=== PATIENT | female | born 1990 | race Caucasian/White ===

== ENCOUNTER 2020-10-22 11:22 | Emergency (ER) | payer OTHER, SELFPAY ==
[2020-10-22 11:23] VITALS: BP 143/71; PULSE 96; RESP 20; TEMP 36.6; O2SAT 99; BMI 31.3
--- NOTE | 2020-10-22 12:42 | HMH.EDUTC ---
[facility] Disposition Clinical Impression: Viral pharyngitis Disposition: Home, Self-Care Condition on Discharge: Good Instructions: Viral Pharyngitis, DI for Viral Pharyngitis Additional Instructions: Drink plenty of fluids. Take tylenol or ibuprofen for pain or fever. Take the medications as directed. Follow up with your regular doctor. GO TO THE ER FOR ANY WORSENING SYMPTOMS Prescriptions: Brompheniramine/Pseudoephed/Dm [Bromfed Dm Cough Syrup] 5 ml PO Q6HP PRN #240 ml PRN Reason: Cough Transmission Status: Received by [id number] predniSONE [Deltasone 10mg tablet] 10 mg PO BID 3 Days #6 tab Transmission Status: Received by [id number] Referrals: Nidia Walker [Primary Care Provider] - Time of Disposition: 12:50 Medical Decision Making - Medical Records Medical records reviewed: Yes: I reviewed the patient's medical records. - Ricardo Inquiry Pt receiving controlled substance: No Vital Signs: 10/22/20 11:23 10/22/20 12:54 Temperature 97.9 F 97.9 F Temperature Source Oral Pulse Rate 96 H Pulse Rate [Left Radial] 96 H Respiratory Rate 20 20 Blood Pressure 143/71 H Blood Pressure [Right Arm] 143/71 H Blood Pressure Mean [Right Arm] 95 Blood Pressure Source [Right Arm] Automatic Cuff Blood Pressure Position [Right Arm] Sitting 02 Sat by Pulse Oximetry 99 Oxygen Delivery Method Room Air Room Air - Lab Data Lab results reviewed: Yes: I reviewed the patient's lab results. [facility] HPI - General Stated complaint: sore throat, spots in mouth Time Seen by Provider: 10/22/20 12:42 Mode of Arrival: Ambulatory Source of Information: Patient Limitations: No Limitations Description of Symptoms (Recalled from Triage Doc. by RN): sore throat with blisters on tongue HEENT Symptoms (Recalled from RN notes): Yes Resp Symptoms (Recalled from RN notes): No Skin Symptoms (Recalled from RN notes): No MS Symptoms (Recalled from RN notes): No Functional Status (Recalled from RN notes): na - History of Present Illness Provider Complaint: She states that for the past 1 day she has had sore areas inside her mouth and a sore throat. She has not had any fever, chills or other symptoms. She does feel kind of bad though. - Related Data Previous Rx's Medication Instructions Recorded Brompheniramine/Pseudoephed/Dm 5 ml PO Q6HP PRN #240 ml 10/22/20 [Bromfed Dm Cough Syrup] predniSONE [Deltasone 10mg tablet] 10 mg PO BID 3 Days #6 tab 10/22/20 Allergies Allergy/AdvReac Type Severity Reaction Status Date / Time oseltamivir [From TAMIFLU] Allergy Unknown I-RASH Unverified 02/06/17 14:12 - Worker's Comp Is this a Worker's Comp case?: No [facility] History - Hepatitis A Screen Drug use history?: No High risk sexual behaviors?: No History of sexually transmitted infection?: No Currently employed?: No Childcare worker?: No Do you have indoor plumbing?: Yes Do you have electricity?: Yes Attestation statement:: This patient has been screened for Hepatitis A risk factors. I have reviewed the patient's past medical history: Yes ROS Obtained: Yes All systems reviewed & no additional complaints - Constitutional Constitutional: Denies chills, Denies fever(s), Denies poor appetite, Denies malaise - Eyes Eyes: Denies eye discharge - ENT Ears, Nose, Mouth, and Throat: Denies dizziness, Denies otalgia, Reports sore throat - Cardiovascular Cardiovascular: Denies chest pain - Respiratory Respiratory: Denies chest congestion, Denies cough, Denies dyspnea, Denies stridor, Denies wheezing - Gastrointestinal Gastrointestingal: Denies: abdominal pain, diarrhea, nausea, vomiting Physical Exam - General General appearance: alert, in no apparent distress - Head Head exam: atraumatic, normocephalic, normal inspection - Eye Eye exam: Present: normal appearance, PERRL, EOMI - ENT ENT exam: Present: mucous membranes moist, normal external ear exam - Expanded ENT
[2020-10-22 12:54] VITALS: BP 143/71; PULSE 96; RESP 20; TEMP 36.6; O2SAT 99
[2020-10-24 09:14] LABS: UTC Strep Screen (Rapid) Negative (Negative)
== END 2020-10-22 12:57 | disposition home or self-care (01) ==
PROVIDERS: Emergency Provider Nurse Practitioner Family; PCP Nurse Practitioner Family
DX: J02.0 Streptococcal pharyngitis (principal)
CPT/HCPCS: 87880; 99202; G0463

== ENCOUNTER 2020-12-06 01:52 | Emergency (ER) | payer OTHER, SELFPAY ==
[2020-12-06 02:29] LABS: Microscopic, Urine URINE MICROSCOPIC (MICROSCOPIC)
[2020-12-06 02:32] LABS: Basophils # 0.1 K/mm3 (0-0.2); Basophils % 0.5 % (0.1-2.0); Eosinophils # 0.4 K/mm3 (0.0-0.4); Eosinophils % 2.6 % (0.1-12.0); Hematocrit 42.4 % (37.0-47.0); Hemoglobin 13.2 g/dL (12.2-16.2); Lymphocytes # 5.1 K/mm3 (0.7-4.5); Lymphocytes % 32.1 % (10-50); Mean Corpuscular HGB Conc 31.3 g/dL (31.8-35.4); Mean Corpuscular Hemoglobin 29.4 pg (27.0-31.2); Mean Platelet Volume 7.1 fl (7.4-10.4); Monocytes # 0.7 K/mm3 (0.1-1.0); Monocytes % 4.4 % (1.7-9.3); Neutrophils # 9.6 K/mm3 (1.8-7.8); Neutrophils % 60.4 % (37.0-80.0); Platelet Count 430 K/mm3 (142-424); Red Cell Distribution Width 13.7 % (11.5-17.5); White Blood Count 15.9 K/mm3 (4.8-10.8)
[2020-12-06 02:34] LABS: Appearance,Urine CLEAR (Clear); Bilirubin,Urine Negative (Negative); Blood, Urine 3+ (Negative); Color,Urine YELLOW (Yellow); Glucose,Urine (UA) Negative (Negative); Ketones,Urine Negative (Negative); Leukocyte Esterase,Urine Negative (Negative); Nitrate,Urine Negative (Negative); Protein,Urine Negative (Negative); Specific Gravity, Urine >= 1.030 (1.005-1.030); Urobilinogen,Urine 0.2 EU/dl (0.2)
[2020-12-06 02:36] LABS: MANUAL DIFFERENTIAL MANUAL DIFFERENTIAL (MANUAL DIFF)
[2020-12-06 02:37] LABS: Urine Pregnancy, HCG Qual. Negative (Negative)
[2020-12-06 02:38] LABS: Amorphous Sediment,Urine Trace /lpf
[2020-12-06 02:39] LABS: Alanine Aminotransferase 29 U/L (12-78); Albumin Level 4.5 g/dl (3.5-5.0); Albumin/Globulin Ratio 1.3 (1.1-1.8); Alkaline Phosphatase 106 U/L (38-126); Amylase 71 U/L (30-110); Anion Gap 15.9 mEq/L (5-15); Aspartate Amino Transferase 34 U/L (14-36); Bilirubin,Total 0.2 mg/dl (0.2-1.3); Blood Urea Nitrogen 9 mg/dl (7-17); Calcium 9.3 mg/dl (8.4-10.2); Carbon Dioxide 26 mmol/L (22.0-30.0); Chloride 106 mmol/L (98-107); Creatinine Clearance Estimated 164 mL/min (50-200); Estimated Glomerular Filt Rate 100 ml/min (>60); GFR (African American) 121 ML/MIN (>60); Globulin 3.6 g/dL (1.3-3.2); Glucose 126 mg/dl (74-100); Lipase 121 U/L (23-300); Potassium 3.9 mmoL/L (3.5-5.1); Sodium 144 mmol/L (136-145); Total Protein,Serum 8.1 g/dl (6.3-8.2)
[2020-12-06 02:43] LABS: Hypochromasia 1+; Lymphocytes % 36 % (10-50); Monocytes % 1 % (2-9); Neutrophils % 58 % (42-76); Platelet Estimate Slight Increase; Total Cells Counted 100
[2020-12-06 02:44] LABS: C-Reactive Protein 11.1 mg/L (0-4)
--- NOTE | 2020-12-06 02:50 | CT_ITS ---
PROCEDURE INFORMATION: Exam: CT Abdomen And Pelvis Without Contrast Exam date and time: 12/06/2020 2:50 AM Age: 30 years old Clinical indication: Abdominal pain; Flank; Right; Additional info: R flank pain, poss stone TECHNIQUE: Imaging protocol: Computed tomography of the abdomen and pelvis without contrast. Radiation optimization: All CT scans at this facility use at least one of these dose optimization techniques: automated exposure control; mA and/or kV adjustment per patient size (includes targeted exams where dose is matched to clinical indication); or iterative reconstruction. COMPARISON: ABDPELW/WO CT ABD PELVIS W/WO CONTRAST 04/11/2016 12:00 PM FINDINGS: Lungs: The visualized lung bases are unremarkable. Liver: Unremarkable noncontrast appearance. Gallbladder and bile ducts: No wall thickening. No calcified stones. No biliary dilation. Pancreas: Unremarkable noncontrast appearance. Spleen: Normal. No splenomegaly. Adrenal glands: Normal. No mass. Kidneys and ureters: There is a 2 mm calculus at the right ureterovesical junction. There is mild upstream right ureterectasis and pelvocaliectasis. No right caliceal calculi are seen. No left renal/ureteral calculi. No left hydronephrosis. Stomach and bowel: No bowel dilation or obstruction. Small to moderate size hiatal hernia. Appendix: Normal appendix. Intraperitoneal space: No pneumoperitoneum. No ascites. Vasculature: Unremarkable. No abdominal aortic aneurysm. Lymph nodes: No enlarged lymph nodes. Urinary bladder: No wall thickening. Reproductive: Unremarkable as visualized. Bones/joints: Unremarkable. No acute fracture. Soft tissues: Small to moderate size umbilical hernia containing fat. Small fat containing bilateral inguinal hernias. IMPRESSION: Obstructing 2 mm calculus at the right ureterovesical junction with mild upstream hydroureteronephrosis
[2020-12-06 02:59] LABS: Erythrocyte Sedimentation Rate 30 mm/hr (0-20)
--- NOTE | 2020-12-06 03:19 | HMH.EDNVD ---
ED Disposition Clinical Impression: Renal colic on right side Disposition: Home, Self-Care Condition on Discharge: Good Instructions: DI for Flank Pain Additional Instructions: use meds and call pcp and urologist this am Referrals: Nidia Walker [Primary Care Provider] - Bryce Sung MD [Staff Physician] - - Critical Care Critical Care Time: No Attestation: On 12/06/20, the high probability of a clinically significant, sudden or life threatening deterioration of the following system(s) required my full and direct attention, intervention and personal management. The time I documented below is in addition to time spent performing reported procedures but includes the following listed in this critical care notation. Medical Decision Making - Medical Records Medical records reviewed: Yes: I reviewed the patient's medical records. - Ricardo Inquiry Pt receiving controlled substance: No Vital Signs: 12/06/20 02:07 Temperature 97.8 F Temperature Source Oral Pulse Rate [Apical] 73 Respiratory Rate 20 Blood Pressure [Right Arm] 144/79 H Blood Pressure Mean [Right Arm] 100 Blood Pressure Source [Right Arm] Automatic Cuff Blood Pressure Position [Right Arm] Sitting 02 Sat by Pulse Oximetry 97 Oxygen Delivery Method Room Air - Lab Data Lab results reviewed: Yes: I reviewed the patient's lab results. Lab Results 12/06/20 02:00: WBC 15.9 H, RBC 4.50, Hgb 13.2, Hct 42.4, MCV 94.0, MCH 29.4, MCHC 31.3 L, RDW 13.7, Plt Count 430 H, MPV 7.1 L, Neut % (Auto) 60.4, Lymph % (Auto) 32.1, [place] % (Auto) 4.4, Eos % (Auto) 2.6, Baso % (Auto) 0.5, Neut # (Auto) 9.6 H, Lymph # (Auto) 5.1 H, [place] # (Auto) 0.7, Eos # (Auto) 0.4, Baso # (Auto) 0.1, Total Counted 100, Neutrophils % (Manual) 58, Band Neutrophils % 5.0, Lymphocytes % (Manual) 36, Monocytes % (Manual) 1 L, Platelet Estimate Slight increase, Hypochromasia 1+ 12/06/20 02:00: Sodium 144, Potassium 3.9, Chloride 106, Carbon Dioxide 26, Anion Gap 15.9 H, BUN 9, Creatinine 0.70, Estimated Creat Clear 164, Estimated GFR 100, Est GFR ( Amer) 121, Glucose 126 H, Calcium 9.3, Total Bilirubin 0.2, AST 34, ALT 29, Alkaline Phosphatase 106, C-Reactive Protein 11.1 H, Total Protein 8.1, Albumin 4.5, Globulin 3.6 H, Albumin/Globulin Ratio 1.3, Amylase 71 12/06/20 02:00: Urine Color Yellow, Urine Appearance Clear, Urine pH 6.0, Ur Specific [place] >= 1.030, Urine Protein Negative, Urine Glucose (UA) Negative, Urine Ketones Negative, Urine Blood 3+, Urine Nitrate Negative, Urine Bilirubin Negative, Urine Urobilinogen 0.2, Ur Leukocyte Esterase Negative, Urine RBC 10-20, Ur Squamous Epith Cells 10-20, Amorphous Sediment Trace 12/06/20 02:00: ESR 30 H 12/06/20 02:00: Urine HCG, Qual Negative 12/06/20 02:00: Lipase 121 Result diagrams: 12/06/20 02:00 12/06/20 02:00 Orders (Tests/Meds): ED MEDICATIONS Generic Name Dose Route Start Last Admin Trade Name Freq PRN Reason Stop Dose Admin Sodium Chloride 1,000 mls @ 999 mls/hr 12/06/20 02:45 12/06/20 02:41 Sod Chlor 0.9% 1000ml Bag IV 12/06/20 03:45 999 mls/hr .Q1H1M GERARDO Administration Discontinued Medications Generic Name Dose Route Start Last Admin Trade Name Freq PRN Reason Stop Dose Admin Acetaminophen/Codeine Phosphate 1 [place] 12/06/20 03:32 Acetaminophen 300mg W/Codeine 30mg Take Home Pack (6) PO 12/06/20 03:33 ONCE ONE Ketorolac Tromethamine 30 mg 12/06/20 02:40 12/06/20 02:41 Ketorolac 30mg/Ml Vial IV 12/06/20 02:41 30 mg ONCE ONE Administration Morphine Sulfate 4 mg 12/06/20 03:36 Morphine 4mg/Ml Syringe IV 12/06/20 03:37 ONCE ONE Ondansetron HCl 4 mg 12/06/20 02:40 12/06/20 02:41 Ondansetron 4mg/2ml Vial IV 12/06/20 02:41 4 mg ONCE ONE Administration Promethazine HCl 25 mg 12/06/20 03:36 Promethazine Hcl 25mg/Ml 1ml Vial IV 12/06/20 03:37 ONCE ONE Sodium Chloride 25 ml 12/06/20 03:36 Sodium Chloride 0.9% 25ml Bag IV 12/06/20 03:37 O
[2020-12-06 04:03] VITALS: BP 135/83; PULSE 77; RESP 22; TEMP 36.7; O2SAT 98
== END 2020-12-06 04:05 | disposition home or self-care (01) ==
PROVIDERS: Emergency Provider Emergency Medicine; PCP Nurse Practitioner Family
DX: N23 Unspecified renal colic (principal)
CPT/HCPCS: 74176; 80053; 81001; 81025; 82150; 83690; 85007; 85025; 85651; 86140; 96365; 96366; 99282; J2405

== ENCOUNTER 2020-12-28 08:55 | Inpatient (IN) | payer OTHER, SELFPAY ==
[2020-12-28] VITALS (11 sets, daily range): BP systolic 114–138; BP diastolic 57–77; PULSE 67–112; RESP 16–19; TEMP 36.7–36.8; O2SAT 93–99; BMI 31.6; BMI 31.8; BMI 30.9
[2020-12-28 09:52] LABS: Basophils # 0.1 K/mm3 (0-0.2); Basophils % 0.3 % (0.1-2.0); Eosinophils % 0.1 % (0.1-12.0); Hematocrit 42.2 % (37.0-47.0); Hemoglobin 13.3 g/dL (12.2-16.2); Lymphocytes # 2.9 K/mm3 (0.7-4.5); Lymphocytes % 11.7 % (10-50); Mean Corpuscular HGB Conc 31.6 g/dL (31.8-35.4); Mean Corpuscular Hemoglobin 29.6 pg (27.0-31.2); Mean Corpuscular Volume 93.8 fl (81-99); Monocytes # 0.8 K/mm3 (0.1-1.0); Monocytes % 3.4 % (1.7-9.3); Neutrophils # 20.8 K/mm3 (1.8-7.8); Neutrophils % 84.5 % (37.0-80.0); Platelet Count 421 K/mm3 (142-424); Red Cell Distribution Width 14.3 % (11.5-17.5); White Blood Count 24.6 K/mm3 (4.8-10.8)
[2020-12-28 09:56] LABS: MANUAL DIFFERENTIAL MANUAL DIFFERENTIAL (MANUAL DIFF)
[2020-12-28 10:00] LABS: Chloride 106 mmol/L (98-107)
[2020-12-28 10:01] LABS: Potassium 3.8 mmoL/L (3.5-5.1); Sodium 142 mmol/L (136-145)
[2020-12-28 10:03] LABS: Alanine Aminotransferase 25 U/L (12-78); Alkaline Phosphatase 122 U/L (38-126); Anion Gap 15.8 mEq/L (5-15); Aspartate Amino Transferase 34 U/L (14-36); Bilirubin,Total 0.4 mg/dl (0.2-1.3); Blood Urea Nitrogen 9 mg/dl (7-17); Carbon Dioxide 24 mmol/L (22.0-30.0); Creatinine Clearance Estimated 197 mL/min (50-200); Estimated Glomerular Filt Rate 119 ml/min (>60); GFR (African American) 144 ML/MIN (>60)
[2020-12-28 10:04] LABS: Albumin Level 4.5 g/dl (3.5-5.0); Albumin/Globulin Ratio 1.4 (1.1-1.8); Calcium 9.3 mg/dl (8.4-10.2); Globulin 3.2 g/dL (1.3-3.2); Glucose 111 mg/dl (74-100); Total Protein,Serum 7.7 g/dl (6.3-8.2)
--- NOTE | 2020-12-28 10:09 | HMH.EDGENADL ---
ED Disposition Clinical Impression: Pyelonephritis, Renal colic on right side Disposition: Admitted as Observation Condition on Discharge: Fair Referrals: Ana Call APRN [Primary Care Provider] - - Critical Care Critical Care Time: No Attestation: On 12/28/20, the high probability of a clinically significant, sudden or life threatening deterioration of the following system(s) required my full and direct attention, intervention and personal management. The time I documented below is in addition to time spent performing reported procedures but includes the following listed in this critical care notation. Medical Decision Making - Medical Records Medical records reviewed: Yes: I reviewed the patient's medical records. MR Comment: Reviewed recent prescriptions filled. Percocet, Macrobid, Pyridium, and Zofran filled yesterday and today. Reviewed emergency department record from 12/06/[address] result. She had a 2 mm right UVJ stone with hydronephrosis. - Ricardo Inquiry Pt receiving controlled substance: Yes Ricardo was queried for this patient: Yes Risks and benefits of using a controlled substance: were not discussed with pt by me Vital Signs: 12/28/20 08:58 12/28/20 11:16 12/28/20 12:42 Temperature 98.0 F Temperature Source Oral Pulse Rate 101 H 88 Pulse Rate [Right Radial] 112 H Respiratory Rate 18 18 Blood Pressure 138/77 121/72 Blood Pressure [Right Arm] 117/77 Blood Pressure Mean 92 84 Blood Pressure Mean [Right Arm] 90 Blood Pressure Source [Right Arm] Automatic Cuff Blood Pressure Position [Right Arm] Sitting 02 Sat by Pulse Oximetry 93 L 95 97 Oxygen Delivery Method Room Air Room Air 12/28/20 13:00 Temperature Temperature Source Pulse Rate 93 H Pulse Rate [Right Radial] Respiratory Rate 18 Blood Pressure 120/73 Blood Pressure [Right Arm] Blood Pressure Mean 92 Blood Pressure Mean [Right Arm] Blood Pressure Source [Right Arm] Blood Pressure Position [Right Arm] 02 Sat by Pulse Oximetry 97 Oxygen Delivery Method Room Air - Lab Data Lab Results 12/28/20 09:34: WBC 24.6 H*, RBC 4.50, Hgb 13.3, Hct 42.2, MCV 93.8, MCH 29.6, MCHC 31.6 L, RDW 14.3, Plt Count 421, MPV 8.0, Neut % (Auto) 84.5 H, Lymph % (Auto) 11.7, [place] % (Auto) 3.4, Eos % (Auto) 0.1, Baso % (Auto) 0.3, Neut # (Auto) 20.8 H, Lymph # (Auto) 2.9, [place] # (Auto) 0.8, Eos # (Auto) 0.0, Baso # (Auto) 0.1, Total Counted 100, Neutrophils % (Manual) 84 H, Lymphocytes % (Manual) 12, Monocytes % (Manual) 4, Platelet Estimate Normal 12/28/20 09:34: Sodium 142, Potassium 3.8, Chloride 106, Carbon Dioxide 24, Anion Gap 15.8 H, BUN 9, Creatinine 0.60, Estimated Creat Clear 197, Estimated GFR 119, Est GFR ( Amer) 144, Glucose 111 H, Calcium 9.3, Total Bilirubin 0.4, AST 34, ALT 25, Alkaline Phosphatase 122, Total Protein 7.7, Albumin 4.5, Globulin 3.2, Albumin/Globulin Ratio 1.4 12/28/20 11:16: Lactate 1.0 12/28/20 11:30: Urine Color Red, Urine Appearance Cloudy, Urine pH 7.0, Ur Specific [place] <= 1.005, Urine Protein 3+, Urine Glucose (UA) 1+, Urine Ketones 1+, Urine Blood 3+, Urine Nitrate Positive, Urine Bilirubin Negative, Urine Urobilinogen >=8.0, Ur Leukocyte Esterase 2+ A, Urine RBC Tntc, Urine WBC 10-20, Ur Squamous Epith Cells 3-5, Urine Bacteria Trace 12/28/20 12:55: SARS-CoV-2 (PCR) Not detected, Influenza A Untype (PCR) Not detected, Influenza Type B (PCR) Not detected Result diagrams: 12/28/20 09:34 12/28/20 09:34 Orders (Tests/Meds): ED MEDICATIONS Generic Name Dose Route Start Last Admin Trade Name Freq PRN Reason Stop Dose Admin Cefepime HCl 2 gm/ Sodium 100 mls @ 100 mls/hr 12/28/20 12:15 12/28/20 12:42 Chloride IV 01/11/21 12:14 100 mls/hr Q12H GERARDO Administration Discontinued Medications Generic Name Dose Route Start Last Admin Trade Name Freq PRN Reason Stop Dose Admin Sodium Chloride 1,000 mls @ 999 mls/hr 12/28/20 09:45 12/28/20 09:37 Sod Chlor 0.9% 1000m
[2020-12-28 10:19] LABS: Lymphocytes % 12 % (10-50); Monocytes % 4 % (2-9); Neutrophils % 84 % (42-76); Platelet Estimate Normal; Total Cells Counted 100
--- NOTE | 2020-12-28 10:20 | CT_ITS ---
PROCEDURE: CT ABDOMEN PELVIS W CON CLINICAL INDICATION: right flank pain, post stent placement COMPARISON: CT ABDPELW/WO CT ABD PELVIS W/WO CONTRAST from 04/11/2016 CT ABDPELW/WO CT ABD PE from 04/11/[address] ABDOMEN PELVIS WO CON from 12/06/2020 TECHNIQUE: IV Contrast: 75ML Isovue 370 Oral Contrast None Axial images obtained with sagittal and coronal reformats. All CT scans at the facility use one or more dose reduction, viz: automated exposure control, ma/kV adjustment per patient size (including targeted exams where dose is matched to indication, i.e. head), or iterative reconstruction technique. FINDINGS: LOWER THORAX: Stable 8 mm nodule in the left lung base. Small hiatal hernia. ABDOMEN & PELVIS: 2 hypodensities of the left lobe of the liver largest at 7 mm and may be due be due to small cyst or hemangiomas. Subtle low-density changes of the anterior aspect of segment 4 B suggesting fatty infiltration. The spleen, adrenal glands, and pancreas have an unremarkable appearance as does the gallbladder. There is mild prominence of the right renal pelvis. There is a right ureteral stent in place which is in good position. Air-fluid levels are present within the right renal pelvis and within the mid and lower pole infundibulum I. the air could be iatrogenic or could be related to underlying gas-forming infection. No abnormal wedge-shaped areas of decreased attenuation of the right kidney that would indicate parenchymal infection or infarction. No renal or ureteral calculi. There is some minimal stranding of the [place] ureteral fat and a small amount of air in the mid aspect of the right ureter. No [place] renal or [place] ureteral abscess apparent. Delayed images were not performed to adequately ascertain for contrast extravasation. If this is a concern then the patient could be re-scanned however, there are no [place] renal or [place] ureteral or pelvic fluid collections evident. Small amount air is present in the urinary bladder. No intestinal obstruction or free air. Unremarkable appearing appendix. No pelvic mass or abnormal fluid collection. No acute bony anomalies. IMPRESSION: Right ureteral stent in good location. Small amount of air is present in the right renal collecting system and ureter and urinary bladder which may be iatrogenic from the ureteral stent placement. Cannot exclude the possibility of underlying infection. No renal or ureteral calculi. Mild prominence of the right renal pelvicaliceal system. Dictated by: Leo Guevara MD 12/28/2020 11:04 Leo Guevara MD in [place] 12/28/2020 11:04
[2020-12-28 11:49] LABS: Microscopic, Urine URINE MICROSCOPIC (MICROSCOPIC)
[2020-12-28 11:54] LABS: Appearance,Urine CLOUDY (Clear); Bilirubin,Urine Negative (Negative); Blood, Urine 3+ (Negative); Color,Urine RED (Yellow); Glucose,Urine (UA) 1+ (Negative); Ketones,Urine 1+ (Negative); Leukocyte Esterase,Urine 2+ (Negative); Nitrate,Urine POSITIVE (Negative); Protein,Urine 3+ (Negative); Specific Gravity, Urine <= 1.005 (1.005-1.030); Urobilinogen,Urine >=8.0 EU/dl (0.2)
[2020-12-28 12:05] LABS: RBC,Urine TNTC #/hpf (0-3)
[2020-12-28 12:06] LABS: Bacteria,Urine Trace /lpf
--- NOTE | 2020-12-28 12:35 | PC.NURSE ---
MESSAGE LEFT WITH DR TRINIDAD TO CALL DR MARQUEZ
--- NOTE | 2020-12-28 12:53 | PC.NURSE ---
DR RUSSO CALLED BACK
--- NOTE | 2020-12-28 13:01 | PC.NURSE ---
DR MARQUEZ NEEDS TO SPEAK WITH SERVICE MD , ADMISSIONS NOTIFIED
[2020-12-28 13:03] LABS: Coronavirus 19, PCR Not Detected (NotDetected); Influenza A, PCR Not Detected (NotDetected); Influenza B, PCR Not Detected (NotDetected)
--- NOTE | 2020-12-28 14:10 | PC.NURSE ---
notified care management of admission, spoke with chloe
--- NOTE | 2020-12-28 15:11 | PC.NURSE ---
report called to sammy felipe on second floor at this time
--- NOTE | 2020-12-28 15:19 | HMH.PHAVTE ---
[facility] Pharmacy VTE Monitoring - Patient Demographics Admission date: 12/28/20 Report Date: 12/28/20 Time: 15:19 Allergies/Adverse Reactions: Patient Allergies oseltamivir [From TAMIFLU] Allergy (Unknown, Verified 12/06/20 02:39) I-RASH Height: 1.68 m Weight: 89.358 kg Patient Problems: Current Active Problems Renal colic on right side (Acute) Pyelonephritis (Acute) - VTE Risk Labs: VTE Related Lab Results Hgb 13.3 g/dL (12.2-16.2) 12/28/20 09:34 Hct 42.2 % (37.0-47.0) 12/28/20 09:34 Plt Count 421 K/mm3 (142-424) 12/28/20 09:34 BUN 9 mg/dl (7-17) 12/28/20 09:34 Creatinine 0.60 mg/dl (0.52-1.04) 12/28/20 09:34 Estimated Creat Clear 197 mL/min (50-200) 12/28/20 09:34 - Prophylaxis VTE Prophylaxis Ordered?: Yes Types of VTE Prophylaxis: TEDS Knee High Location of Applied Device: Bilateral Lower Extremeties
--- NOTE | 2020-12-28 15:20 | HMH.PHAINT ---
MEDICATION RECONCILIATION COMPLETED ON PATIENT USING EXTERNAL FILL HISTORY FROM PHARMACY AND YOSVANY REPORT. -YENI CLEANINGD
--- NOTE | 2020-12-28 16:11 | HMH.HP ---
*Admission Date: 12/28/20 <Janice Zamora - 12/28/20 16:40> *Chief complaint: Abdominal pain with nausea and vomiting <Janice Zamora 12/28/20 16:40> *History of present illness: Ms. Lowry is a 30-year-old female with history of previous kidney stones, ulcers, environmental allergies who presented to [facility] at the direction of her of her urologist Dr. Jerez, after experiencing right flank pain since yesterday afternoon associated with nausea and vomiting. She was told to take her p.o. pain medicine yesterday which she did and it really did not help. She was wake all night and then began vomiting this morning. She denies fever. She has been voiding as usual. With evaluation in the emergency room she had a CT of the abdomen/pelvis which revealed the following: IMPRESSION: Right ureteral stent in good location. Small amount of air is present in the right renal collecting system and ureter and urinary bladder which may be iatrogenic from the ureteral stent placement. Cannot exclude the possibility of underlying infection. No renal or ureteral calculi. Mild prominence of the right renal pelvicaliceal system. White blood cell count was noted to be 24,600. Blood chemistries show normal electrolytes and renal function. Liver function studies are also normal. She was started on cefepime and given a liter fluid bolus. Urine and blood culture results are pending. She received Ketorolac and morphine in the emergency room. Her urologist, Dr Jerez, was contacted and directed her to be admitted. <Janice Zamora 12/28/20 16:40> [facility] History Medical History: Reports:: Gastroesophageal Reflux Disease(GERD), Kidney Stones, Ulcer Denies:: Diabetes Mellitus Type 1, Diabetes Mellitus Type 2 <Janice Zamora 12/28/20 16:40> *Have you ever received a pneumonia vaccine?: No <Janice Zamora 12/28/20 16:40> *Have you received a flu vaccine this season?: No <ZamoraJanice 12/28/20 16:40> Other Surgeries: Yes: Other (dental surgery) <ZamoraJanice 12/28/20 16:40> Comment: Right ureteral stent <ZamoraJanice 12/28/20 16:40> - *Social History Last grade of school completed: Some college <Janice Zamora 12/28/20 16:40> Smoking Status: Current every day smoker <Janice Zamora 12/28/20 16:40> Tobacco Type: cigarettes <Janice Zamora 12/28/20 16:40> # Packs/Day (cigarettes): 1 <Janice Zamora 12/28/20 16:40> Alcohol Intake: never <Janice Zamora 12/28/20 16:40> *Occupational Status:: employed <NoahJanice 12/28/20 16:40> Housing: house <NoahJanice 12/28/20 16:40> Household Members: significant other, children <NoahJanice 12/28/20 16:40> *Travel in the last 8 weeks: None <NoahJanice 12/28/20 16:40> Family Hx:: Hyperlipidemia, Hypertension <NoahJanice 12/28/20 16:40> Review of Systems - Constitutional Denies fever(s), Denies headache(s) <NoahJanice 12/28/20 16:40> - Eyes Denies change in vision <ZamoraJanice 12/28/20 16:40> - ENT Denies dizziness, Denies ear pain, Denies nasal congestion, Denies sore throat <ZamoraJanice 12/28/20 16:40> - *Cardiovascular Denies chest pain, Denies shortness of breath <ZamoraJanice 12/28/20 16:40> - *Respiratory Denies chest congestion, Denies cough, Denies shortness of breath <ZamoraJanice 12/28/20 16:40> - *Gastrointestinal Reports abdominal pain (Right flank), Reports nausea, Reports vomiting, Denies vomiting blood, Denies bright, red blood in stools, Denies black, tarry stools <ZamoraJanice 12/28/20 16:40> - *Genitourinary Denies difficulty urinating <ZamoraJanice 12/28/20 16:40> - *Musculoskeletal Denies abnormal walking, Denies joint pain <ZamoraJanice 12/28/20 16:40> - *Neurologic Denies dizziness, Denies headache(s) <Janice Zamora - 12/28/20 16:40> Meds Home Medications Medication Instructions Recorded Confirmed Type Loratadine 10 mg PO DAILY 12/28/20 12/28/20 History
--- NOTE | 2020-12-29 04:15 | PC.NURSE ---
NO acute changes overnight. A&O x4. pt c/o pain once this shift, treated with morphine per mar with desired effects. Pt able to ambulate independently in room and make needs known to staff. IV patent, vss, call light in reach, no concerns at this time.
[2020-12-29 04:31] VITALS: BP 118/70; PULSE 71; RESP 16; TEMP 36.6; O2SAT 97
[2020-12-29 04:41] VITALS: BMI 31.8
[2020-12-29 06:40] LABS: Anion Gap 10.1 mEq/L (5-15); Blood Urea Nitrogen 10 mg/dl (7-17); Calcium 8.2 mg/dl (8.4-10.2); Carbon Dioxide 24 mmol/L (22.0-30.0); Chloride 110 mmol/L (98-107); Creatinine Clearance Estimated 238 mL/min (50-200); Estimated Glomerular Filt Rate 147 ml/min (>60); GFR (African American) 178 ML/MIN (>60); Glucose 90 mg/dl (74-100); Potassium 4.1 mmoL/L (3.5-5.1); Sodium 140 mmol/L (136-145)
[2020-12-29 06:48] LABS: Basophils # 0.1 K/mm3 (0-0.2); Basophils % 0.5 % (0.1-2.0); Eosinophils # 0.2 K/mm3 (0.0-0.4); Eosinophils % 1.8 % (0.1-12.0); Hematocrit 36.2 % (37.0-47.0); Lymphocytes # 2.9 K/mm3 (0.7-4.5); Lymphocytes % 26.9 % (10-50); Mean Corpuscular Hemoglobin 29.7 pg (27.0-31.2); Mean Corpuscular Volume 92.6 fl (81-99); Mean Platelet Volume 7.2 fl (7.4-10.4); Monocytes # 0.5 K/mm3 (0.1-1.0); Monocytes % 4.9 % (1.7-9.3); Neutrophils # 7.1 K/mm3 (1.8-7.8); Neutrophils % 65.9 % (37.0-80.0); Platelet Count 330 K/mm3 (142-424); Red Blood Count 3.91 M/mm3 (4.20-5.40); Red Cell Distribution Width 13.9 % (11.5-17.5); White Blood Count 10.7 K/mm3 (4.8-10.8)
[2020-12-29 06:49] LABS: Hemoglobin 11.6 g/dL (12.2-16.2)
[2020-12-29 07:32] VITALS: BP 127/70; PULSE 77; RESP 16; TEMP 36.9; O2SAT 98
[2020-12-29 15:07] VITALS: BP 125/57; PULSE 82; RESP 20; TEMP 36.7; O2SAT 98
[2020-12-29 20:00] VITALS: BP 133/76; PULSE 90; RESP 18; TEMP 36.7; O2SAT 99
[2020-12-30 04:00] VITALS: BP 121/74; PULSE 69; RESP 18; TEMP 36.7; O2SAT 99
--- NOTE | 2020-12-30 04:32 | PC.NURSE ---
pt slept well through the night, pt has not required or asked for any pain medications through the night, VSS
[2020-12-30 05:07] VITALS: BMI 31.6
[2020-12-30 08:00] VITALS: BP 129/74; PULSE 94; RESP 19; TEMP 36.7; O2SAT 97
--- NOTE | 2020-12-30 08:54 | P.PN_ITS ---
Internal Medicine - PN: Subj *Date: 12/30/20 *Time: 08:54 Interval history: Patient states she still having some pain in the right side of her abdomen radiating to her right flank. It has improved slightly since yesterday. She still doesn't feel like eating. She is upset because she had an appointment today with her urologist in [place] to remove her stent and she is not going to be able to make that appointment due to being in the hospital. She states they can't see her now until Sunday. Exam Vital signs and Labs for Last 24 Hours: Temp Pulse Resp BP Pulse Ox 98.1 F 94 H 19 129/74 97 12/30/20 08:00 12/30/20 08:00 12/30/20 08:00 12/30/20 08:00 12/30/20 08:00 I & O for Last 24 hours: Intake & Output 12/27/20 12/28/20 12/29/20 12/30/20 11:59 11:59 11:59 11:59 Intake Total 576 / 576 6343 / 6343 Output Total 0 / 0 Balance 576 / 576 6343 / 6343 Weight 197 lb 198 lb 197 lb Microbiology Reports for the Last 24 Hours: Microbiology 12/28/20 11:30 Urine,Clean Catch Urine Culture - Preliminary NO GROWTH AFTER 24 HOURS - Constitutional no acute distress - *Routine Respiratory Exam Present: CTA bilaterally - *Routine Cardiovascular Exam Present: RRR - *Routine Abdominal Exam Present: soft, normoactive bowel sounds, tenderness (right mid abdomen) - *Routine Extremities Exam Absent: cyanosis, clubbing, edema - *Routine Skin Exam Present: warm. Absent: rash - *Routine Neurological Exam Present: alert, oriented X3 Assessment and Plan (1) Pyelonephritis Status: Acute Category: Medical Code(s): N12 - Tubulo-interstitial nephritis, not specified as acute or chronic (2) Renal colic on right side Status: Acute Category: Medical Code(s): N23 - Unspecified renal colic (3) GERD (gastroesophageal reflux disease) Status: Acute Category: Medical Code(s): K21.9 - Gastro-esophageal reflux disease without esophagitis - Assessment and plan all Dx Assessment and Plan for all problems:: Patient can likely be discharged today on continued antibiotics. She will need f/u with her urologist. Will discuss with Dr. Parekh.
--- NOTE | 2020-12-30 08:55 | P.PN_ITS ---
Internal Medicine - PN: Subj *Date: 12/29/20 *Time: 08:55 Interval history: Addendum entered and electronically signed by Giselle Parekh MD 12/29/20 08:53: She has improved overnight with IV antibiotics. She has an appointment with urology in [place] in the morning. We will keep her overnight and discharge her in the morning so she can go directly to her urology follow-up. Exam Vital signs and Labs for Last 24 Hours: Temp Pulse Resp BP Pulse Ox 98.1 F 94 H 19 129/74 97 12/30/20 08:00 12/30/20 08:00 12/30/20 08:00 12/30/20 08:00 12/30/20 08:00 I & O for Last 24 hours: Intake & Output 12/27/20 12/28/20 12/29/20 12/30/20 11:59 11:59 11:59 11:59 Intake Total 576 / 576 6343 / 6343 Output Total 0 / 0 Balance 576 / 576 6343 / 6343 Weight 197 lb 198 lb 197 lb Microbiology Reports for the Last 24 Hours: Microbiology 12/28/20 11:30 Urine,Clean Catch Urine Culture - Preliminary NO GROWTH AFTER 24 HOURS - *Routine HEENT Exam Head: Present: normocephalic Eye: Present: EOMI, PERRL ENT: Present: mucous membranes moist - *Routine Neck Exam Present: supple. Absent: lymphadenopathy - *Routine Respiratory Exam Present: CTA bilaterally - *Routine Cardiovascular Exam Present: RRR - *Routine Abdominal Exam Present: soft, normoactive bowel sounds, tenderness (minimal) - *Routine Exam Patient deferred: external exam (not examined) - *Routine Extremities Exam Absent: cyanosis, clubbing, edema - *Routine Skin Exam Present: intact, warm. Absent: rash - *Routine Neurological Exam Present: alert, oriented X3 Assessment and Plan (1) Pyelonephritis Status: Acute Category: Medical Code(s): N12 - Tubulo-interstitial nephritis, not specified as acute or chronic (2) Renal colic on right side Status: Acute Category: Medical Code(s): N23 - Unspecified renal colic (3) GERD (gastroesophageal reflux disease) Status: Acute Category: Medical Code(s): K21.9 - Gastro-esophageal reflux disease without esophagitis - Assessment and plan all Dx Assessment and Plan for all problems:: IV antibiotics, will discharge 12/30 for Urology appt.
--- NOTE | 2020-12-30 08:58 | P.PN_ITS ---
Internal Medicine - PN: Subj *Date: 12/30/20 *Time: 08:58 Interval history: The discharge was arranged. Dr. Parekh spoke with Dr. Jerez's office who stated she could come to the office in [place] before noon. Dr. Jerez, however contacted Dr. Parekh stating that the patient could be discharged, but that he wanted to see her on SUNDAY at 10:00 AM. He concurred with the use of p.o. Cefdinir for outpatient treatment. Exam Vital signs and Labs for Last 24 Hours: Temp Pulse Resp BP Pulse Ox 98.1 F 94 H 19 129/74 97 12/30/20 08:00 12/30/20 08:00 12/30/20 08:00 12/30/20 08:00 12/30/20 08:00 I & O for Last 24 hours: Intake & Output 12/27/20 12/28/20 12/29/20 12/30/20 11:59 11:59 11:59 11:59 Intake Total 576 / 576 6343 / 6343 Output Total 0 / 0 Balance 576 / 576 6343 / 6343 Weight 197 lb 198 lb 197 lb Microbiology Reports for the Last 24 Hours: Microbiology 12/28/20 11:30 Urine,Clean Catch Urine Culture - Preliminary NO GROWTH AFTER 24 HOURS - Constitutional no acute distress - *Routine HEENT Exam Head: Present: normocephalic Eye: Present: EOMI, PERRL ENT: Present: mucous membranes moist - *Routine Neck Exam Present: supple. Absent: lymphadenopathy - *Routine Respiratory Exam Present: CTA bilaterally - *Routine Cardiovascular Exam Present: RRR - *Routine Abdominal Exam Present: soft, normoactive bowel sounds. Absent: tenderness - *Routine Extremities Exam Absent: cyanosis, clubbing, edema - *Routine Skin Exam Present: warm. Absent: rash - *Routine Neurological Exam Present: alert, oriented X3 Assessment and Plan (1) Pyelonephritis Status: Acute Category: Medical Code(s): N12 - Tubulo-interstitial nephritis, not specified as acute or chronic (2) Renal colic on right side Status: Acute Category: Medical Code(s): N23 - Unspecified renal colic (3) GERD (gastroesophageal reflux disease) Status: Acute Category: Medical Code(s): K21.9 - Gastro-esophageal reflux disease without esophagitis - Assessment and plan all Dx Assessment and Plan for all problems:: Discharge. Cefdinir, continue other meds as prior to [facility]. Appt with Dr. Jerez Sunday.
[2020-12-30 09:05] LABS: Basophils # 0.1 K/mm3 (0-0.2); Basophils % 0.7 % (0.1-2.0); Eosinophils # 0.2 K/mm3 (0.0-0.4); Hematocrit 40.1 % (37.0-47.0); Lymphocytes # 2.2 K/mm3 (0.7-4.5); Lymphocytes % 22.1 % (10-50); Mean Corpuscular HGB Conc 32.3 g/dL (31.8-35.4); Mean Corpuscular Hemoglobin 29.7 pg (27.0-31.2); Mean Corpuscular Volume 91.9 fl (81-99); Mean Platelet Volume 7.6 fl (7.4-10.4); Monocytes # 0.4 K/mm3 (0.1-1.0); Monocytes % 3.9 % (1.7-9.3); Neutrophils % 71.3 % (37.0-80.0); Platelet Count 410 K/mm3 (142-424); Red Blood Count 4.37 M/mm3 (4.20-5.40); White Blood Count 9.8 K/mm3 (4.8-10.8)
--- NOTE | 2020-12-30 10:20 | PC.NURSE ---
patient ready for discharge home today
--- NOTE | 2020-12-30 16:42 | HMH.DCSUM ---
General - General Admission date:: 12/28/20 Discharge date: 12/30/20 HPI HPI: Ms. Lowry is a 30-year-old female with history of previous kidney stones, ulcers, environmental allergies who presented to [facility] at the direction of her of her urologist Dr. Jerez, after experiencing right flank pain since yesterday afternoon associated with nausea and vomiting. She was told to take her p.o. pain medicine yesterday which she did and it really did not help. She was wake all night and then began vomiting this morning. She denies fever. She has been voiding as usual. With evaluation in the emergency room she had a CT of the abdomen/pelvis which revealed the following: IMPRESSION: Right ureteral stent in good location. Small amount of air is present in the right renal collecting system and ureter and urinary bladder which may be iatrogenic from the ureteral stent placement. Cannot exclude the possibility of underlying infection. No renal or ureteral calculi. Mild prominence of the right renal pelvicaliceal system. White blood cell count was noted to be 24,600. Blood chemistries show normal electrolytes and renal function. Liver function studies are also normal. She was started on cefepime and given a liter fluid bolus. Urine and blood culture results are pending. She received Ketorolac and morphine in the emergency room. Her urologist, Dr Jerez, was contacted and directed her to be admitted. Hospital Course Hospital Course: The patient was admitted and started on IV antibiotics as well as IV fluids. She had a follow-up scheduled with her urologist on 12/30/2020 for stent removal. She improved overnight and Dr. Parekh spoke with her urology office who stated she could come into the office in [place] before noon today for stent removal. Dr. Jerez, her urologist, then contacted Dr. Parekh and stated she could be discharged, but that he wanted to see her on Sunday at 10 AM. He concurred with the use of p.o. cefdinir for outpatient treatment. The patient was discharged. Objective Vital signs: Temp Pulse Resp BP Pulse Ox 98.1 F 94 H 19 129/74 97 12/30/20 08:00 12/30/20 08:00 12/30/20 08:00 12/30/20 08:00 12/30/20 08:00 Narrative: - Constitutional no acute distress Comments: Appears comfortable lying in bed - *Routine HEENT Exam Head: Present: normocephalic, atraumatic Eye: Present: PERRL. Absent: conjunctival icterus, scleral injection ENT: Present: mucous membranes moist, oropharynx clear - *Routine Neck Exam Present: supple. Absent: carotid bruit, lymphadenopathy, thyromegaly - *Routine Respiratory Exam Present: CTA bilaterally (Anteriorly and posteriorly) - *Routine Cardiovascular Exam Present: RRR - *Routine Abdominal Exam Present: soft, normoactive bowel sounds, tenderness (Right flank) - *Routine Rectal Exam Rectal:: deferred - *Routine Genitalia Exam Genitalia:: deferred - *Routine Extremities Exam Absent: edema, calf tenderness - *Routine Neurological Exam Present: alert, oriented X3 Results Labs on day of discharge: Labs from last 24 hours 12/30/20 08:52 WBC 9.8 RBC 4.37 Hgb 13.0 Hct 40.1 MCV 91.9 MCH 29.7 MCHC 32.3 RDW 14.0 Plt Count 410 MPV 7.6 Neut % (Auto) 71.3 Lymph % (Auto) 22.1 Lyon % (Auto) 3.9 Eos % (Auto) 2.0 Baso % (Auto) 0.7 Neut # (Auto) 7.0 Lymph # (Auto) 2.2 Lyon # (Auto) 0.4 Eos # (Auto) 0.2 Baso # (Auto) 0.1 Preliminary micro results at discharge 12/28/20 11:16 Blood Culture - Preliminary Blood NO GROWTH AFTER 48 HOURS 12/28/20 11:16 Blood Culture - Preliminary Blood NO GROWTH AFTER 48 HOURS DS: Diagnosis - Discharge Diagnosis (1) Pyelonephritis Status: Acute (2) Renal colic on right side Status: Acute (3) GERD (gastroesophageal reflux disease) Status: Acute Discharge Plan - Patient Disc
== END 2020-12-30 08:50 | disposition home or self-care (01) | DRG 690 ==
LOC: ER 13:52 → 2ND 14:35
PROVIDERS: Admitting Provider Family Medicine; Emergency Provider Emergency Medicine; PCP Nurse Practitioner; Visit Provider Family Medicine
DX: N12 Tubulo-interstitial nephritis, not specified as acute or chronic (principal); K21.9 Gastro-esophageal reflux disease without esophagitis; F17.210 Nicotine dependence, cigarettes, uncomplicated; Z20.822 Contact with and (suspected) exposure to COVID-19
CPT/HCPCS: 36415; 74177; 80048; 80053; 81001; 83605; 85007; 85025; 87040; 87086; 96365; 96367; 96375; 99284; C9803; Q9967; U0003; U0005

== ENCOUNTER → 2021-07-22 16:42 | Outpatient (CLI) | payer OTHER, SELFPAY ==
--- NOTE | 2021-07-22 16:42 | MR_ITS ---
PROCEDURE INFORMATION: Exam: MR Head Without Contrast Exam date and time: 07/22/2021 4:51 PM Age: 31 years old Clinical indication: Pain; Headache; Additional info: New onset of daily headaches, slurred speech TECHNIQUE: Imaging protocol: MR of the head without contrast. COMPARISON: No relevant prior studies available. FINDINGS: Brain: Normal. No acute infarct. No hemorrhage. No significant white matter disease. No edema. Cerebral ventricles: Normal. No ventriculomegaly. Bones/joints: Unremarkable. Paranasal sinuses: Bilateral chronic diffuse inflammatory sinus changes. Mastoid air cells: Normal as visualized. No mastoid effusion. Orbital cavities: Unremarkable. Soft tissues: Unremarkable. IMPRESSION: 1. No evidence of acute intracranial abnormality. 2. Bilateral chronic diffuse paranasal inflammatory sinus changes.
== END ==
PROVIDERS: PCP Nurse Practitioner; Visit Provider Specialist
DX: R51.9 Headache, unspecified (principal); R47.81 Slurred speech
CPT/HCPCS: 70551

== ENCOUNTER 2021-08-08 16:35 | Emergency (ER) | payer OTHER, SELFPAY ==
[2021-08-08 18:15] VITALS: BP 127/83; PULSE 94; RESP 19; TEMP 36.9; O2SAT 100; BMI 31.6
[2021-08-08 18:52] LABS: Strep Scrn Group A (Rapid) Negative (Negative)
--- NOTE | 2021-08-08 18:56 | HMH.EDUTC ---
[facility] [place] [facility] Disposition Clinical Impression: Viral pharyngitis Disposition: Home, Self-Care Condition on Discharge: Good Instructions: Sore Throat, DI for Cough -- Adult Additional Instructions: *Monitor Temp, Over the counter Motrin or Tylenol as directed/as needed Tylenol every 4 hours and Motrin every 6 hours (as long as your family doctor has told you that you can take it) for fever or pain. and straight to ER if unable to lower temp less than 101.0 after medication given *Warm salt water gargles may help to soothe the throat *Throat Lozenges *Warm fluids like tea with honey may help to soothe the throat *Sleep elevated *Humidifier/Vaporizer Over the counter Robitussin may help with cough Your throat swab was sent for culture. Those results are typically sent to your primary care. Be sure to follow up in 2-3 days with your family doctor/primary care physician if no improvement so they can review those result and treat if necessary. If you don?t have a primary care doctor, I recommend you get one but in the mean time, you will have to return to a walk in clinic Follow up IMMEDIATELY for new or worsening symptoms or no Noticeable improvement over the next 48-72 hours. 911 for difficulty breathing or swallowing Referrals: Ana Call APRN [Primary Care Provider] - As needed Time of Disposition: 18:59 Medical Decision Making - Ricardo Inquiry Pt receiving controlled substance: No Ricardo was queried for this patient: No Vital Signs: 08/08/21 18:15 Temperature 98.4 F Temperature Source Oral Pulse Rate [Right Brachial] 94 H Respiratory Rate 19 Blood Pressure [Right Arm] 127/83 Blood Pressure Mean [Right Arm] 97 Blood Pressure Source [Right Arm] Automatic Cuff Blood Pressure Position [Right Arm] Sitting 02 Sat by Pulse Oximetry 100 Oxygen Delivery Method Room Air - Lab Data Lab results reviewed: Yes: I reviewed the patient's lab results. Lab Results 08/08/21 18:10: Group A Strep Rapid Negative Orders (Tests/Meds): ORDERS Category Date Time Status Strep Screen Confirmation Stat Micro 08/08/21 18:10 Received [facility] [place] HPI - General Stated complaint: sore throat Time Seen by Provider: 08/08/21 18:56 Mode of Arrival: Ambulatory Source of Information: Patient Limitations: No Limitations Description of Symptoms (Recalled from Triage Doc. by RN): PATIENT C/O BUMPS ON BACK OF TONGUE X 3 DAYS HEENT Symptoms (Recalled from RN notes): Yes Resp Symptoms (Recalled from RN notes): No Skin Symptoms (Recalled from RN notes): No MS Symptoms (Recalled from RN notes): No Functional Status (Recalled from RN notes): WNL - History of Present Illness Provider Complaint: Patient states that she has been having sore throat and cough for a couple of days with bumps on the back of her tongue State that she was on medication for it last week but didnt help so she came in - Related Data Home Medications Medication Instructions Recorded Confirmed Loratadine 10 mg PO DAILY 12/28/20 07/05/21 Omeprazole Magnesium [Prilosec Otc 20 mg PO DAILY 12/28/20 07/05/21 20mg Tab] hydroxyzine pamoate 25 mg capsule 25 mg PO TID cap 07/05/21 07/05/21 metoprolol tartrate 25 mg tablet 25 mg PO BID tab 07/05/21 07/05/21 sertraline 25 mg tablet 25 mg PO DAILY tab 07/05/21 07/05/21 Allergies Allergy/AdvReac Type Severity Reaction Status Date / Time oseltamivir [From TAMIFLU] Allergy Unknown I-RASH Verified 07/05/21 13:29 - Worker's Comp Is this a Worker's Comp case?: No [facility] History - Hepatitis A Screen Attestation statement:: This patient has been screened for Hepatitis A risk factors. I have reviewed the patient's past medical history: Yes Medical History: Reports:: Anxiety, Depression, Gastroesophageal Reflux Disease(GERD), Kidney Stones, Ulcer Denies:: Diabetes Mellitus Type 1, Diabetes Mellitus Type 2 Other Surgeries: Yes: Other Comment: Right ureteral stent - Social History Smoking Status:
[2021-08-08 19:01] VITALS: BP 127/83; PULSE 94; RESP 19; TEMP 36.9; O2SAT 100
== END 2021-08-08 19:05 | disposition home or self-care (01) ==
PROVIDERS: Emergency Provider Nurse Practitioner; PCP Nurse Practitioner
DX: J02.9 Acute pharyngitis, unspecified (principal); R05.9 Cough, unspecified; Z72.0 Tobacco use; K13.70 Unspecified lesions of oral mucosa
CPT/HCPCS: 87430; 99212; G0463

== ENCOUNTER 2021-08-25 17:00 | Outpatient (RCR) | payer OTHER, SELFPAY ==
--- NOTE | 2021-07-25 17:27 | HMH.PTOPEV ---
PT Outpatient Evaluation Rehab PT Outpatient Evaluation Start: 07/25/21 16:14 Freq: Status: Active Protocol: Document 07/25/21 17:06 CYNTHIA (Rec: 07/25/21 17:27 [email or web address] [id number]) Electronically Signed By Dennis Llanos, PT 07/25/21 17:06 Outpatient Therapy Subjective History Subjective History Pt. is a 31 year old female who presents to [facility] in [place] for the initial evaluation this date( 07/25/21) w/ c/o chronic and constant cervical/thoracic P!, headaches, and stiffness of insidious onset that have worsened since the end of last year. However, pt. reports having a chronic history of headaches, but states symptoms have been constant since the end of last year. Pt. reports having an MRI last Sunday(07/22/21) and is awaiting to hear back from her MD on the results. Pt . denies having any steroid injections for current complaint. Pt. reports having some symptom relief w/ OTC Tylenol and rest. Pt. reports symptoms worsen w/ reading, driving, and looking down. States not being able to do anything when symptoms are at their worse. Pt. denies having any numbness/tingling into neither BUE. Pt. denies history of cancer(self), denies history of Diabetes, denies pacemaker, denies latex allergy, reports having a medicational allergy to Tamiflu. Pt. RTMD 08/16/21. Current medications include Eletriptan, Zoloft, Prilosec, and Metoprolol. PMH includes Epidural Block w/ x 2, history of peptic ulcers, Anxiety Disorder, Depression Disorder. Chief Complaint Pain,Spasms,Stiff,Weakness,
== END 2021-09-12 14:43 | disposition home or self-care (01) ==
LOC: PT.CARL 17:00
PROVIDERS: PCP Nurse Practitioner; Visit Provider Specialist
DX: G44.52 New daily persistent headache (NDPH) (principal)
CPT/HCPCS: 20560; 97010; 97014; 97110; 97163; 97164; G0283